=== PATIENT | female | born 1935 | race Caucasian/White ===

== ENCOUNTER 2022-10-28 14:56 | Inpatient (IN) | payer MEDICARE, OTHER ==
[~2022-10-28 14:56] MED LIST: Iopamidol 370 76% 50 ML VIAL FS ONE
[2022-10-28 15:22] LABS: #Basophils 0.1 10x3/uL (0.0-0.2); #Eosinphils 0.3 10x3/uL (0.0-0.5); #Monocytes 0.7 10x3/uL (0.0-1.1); #Neutrophils 3.9 10x3/uL (1.5-8.4); %Basophils 1.3 % (0.0-2.0); %Eosinophils 4.3 % (0.0-6.0); %Lymphocytes 29.7 % (18.0-47.0); %Monocytes 9.8 % (0.0-10.0); %Neutrophils 54.6 % (40.0-75.0); Hemoglobin 13.2 g/dL (12.0-15.5); Mean Corpuscular HGB CONC 32.8 g/dL (32.0-36.0); Mean Corpuscular Hemoglobin 30.6 pg (27.0-33.0); Mean Corpuscular Volume 93.5 fl (81.6-98.3); Mean Platelet Volume 11.1 fl (7.4-10.4); Platelet Count 196 10x3/uL (150-450); RBC Distribution Width 14.9 % (11.5-14.5); Red Blood Cell (RBC) Count 4.31 10x6/uL (3.90-5.03); White Blood Cell (WBC) Count 7.2 10x3/uL (3.5-10.5)
[2022-10-28 15:38] LABS: INR-International Normal Ratio 1.1; PTT 30.3 sec (22.0-33.0)
[2022-10-28 15:42] LABS: ALT (SGPT) 165 U/L (8-55); AST (SGOT) 134 U/L (5-34); Albumin 4.1 g/dL (3.4-4.8); Alkaline Phosphatase 135 U/L (40-110); Anion Gap 18 mmol/L (10-20); BUN (Urea Nitrogen) 31 mg/dL (9.8-20.1); CK (CPK) 217 U/L (29-168); Calc. Creatinine Clearance 0 mL/min (70-130); Calcium 8.8 mg/dL (7.8-10.44); Carbon Dioxide 20 mmol/L (23-31); Chloride 104 mmol/L (98-107); Estimated GFR 39; Globulin 2.6 g/dL (2.4-3.5); Glucose 144 mg/dL (83-110); Magnesium 1.9 mg/dL (1.6-2.6); Protein, Total 6.7 g/dL (5.8-8.1); Sodium 138 mmol/L (136-145)
[2022-10-28 18:34] VITALS: BMI 28.3
[2022-10-28 19:27] LABS: Troponin I Less than 0.010 ng/mL (< 0.028)
[2022-10-28] MEDS ORDERED: Acetaminophen 650 MG Suppository PR PRN (20:44)
[2022-10-28] MEDS ORDERED: Ondansetron PF 4 MG/2 ML Vial IVP PRN (20:44)
[2022-10-28] MEDS ORDERED: Ondansetron ODT 4 MG TAB PO PRN (20:44)
[2022-10-28] MEDS ORDERED: Acetaminophen 325 MG TAB PO PRN (20:44)
[2022-10-28] MEDS: Apixaban 5 MG TAB PO SCH (21:54)
[2022-10-28 22:30] LABS: Troponin I Less than 0.010 ng/mL (< 0.028)
[2022-10-29] MEDS ORDERED: Zolpidem Tartrate 5 MG TAB PO SCH (01:30)
[2022-10-29 05:36] LABS: #Basophils 0.1 10x3/uL (0.0-0.2); #Eosinphils 0.2 10x3/uL (0.0-0.5); #Monocytes 0.9 10x3/uL (0.0-1.1); %Eosinophils 2.4 % (0.0-6.0); %Lymphocytes 26.9 % (18.0-47.0); %Monocytes 10.3 % (0.0-10.0); %Neutrophils 59.2 % (40.0-75.0); Hemoglobin 11.5 g/dL (12.0-15.5); Mean Corpuscular Hemoglobin 29.9 pg (27.0-33.0); Mean Corpuscular Volume 93.5 fl (81.6-98.3); Mean Platelet Volume 11.2 fl (7.4-10.4); Platelet Count 177 10x3/uL (150-450); Red Blood Cell (RBC) Count 3.84 10x6/uL (3.90-5.03); White Blood Cell (WBC) Count 8.4 10x3/uL (3.5-10.5)
[2022-10-29 05:39] LABS: ALT (SGPT) 128 U/L (8-55); AST (SGOT) 81 U/L (5-34); Albumin 3.5 g/dL (3.4-4.8); Alkaline Phosphatase 111 U/L (40-110); Anion Gap 15 mmol/L (10-20); BUN (Urea Nitrogen) 28 mg/dL (9.8-20.1); Bilirubin, Total 0.9 mg/dL (0.2-1.2); Calc. Creatinine Clearance 42 mL/min (70-130); Calcium 8.2 mg/dL (7.8-10.44); Carbon Dioxide 21 mmol/L (23-31); Chloride 105 mmol/L (98-107); Estimated GFR 45; Globulin 2.3 g/dL (2.4-3.5); Glucose 98 mg/dL (83-110); Potassium 3.5 mmol/L (3.5-5.1); Protein, Total 5.8 g/dL (5.8-8.1); Sodium 137 mmol/L (136-145)
[2022-10-29] MEDS: Levothyroxine Sodium 50 MCG TAB PO SCH (06:04)
[2022-10-29] MEDS ORDERED: Sodium Chloride 0.9% 1,000 ML IV SCH (07:30)
[2022-10-29] MEDS ORDERED: Metoprolol Tartrate 5 MG/5 ML VIAL IVP PRN (08:00)
[2022-10-29] MEDS ORDERED: Potassium Chloride 20 MEQ TAB PO SCH (09:00)
[2022-10-29] MEDS ORDERED: Atorvastatin Calcium 40 MG TAB PO SCH (09:00)
[2022-10-29 09:07] LABS: Magnesium 1.7 mg/dL (1.6-2.6)
[2022-10-29] MEDS: Apixaban 5 MG TAB PO SCH ×2 (10:36→21:56)
[2022-10-29] MEDS: DULoxetine 20 MG CAP PO SCH (10:36)
[2022-10-29] MEDS: Amiodarone 200 MG TAB PO SCH ×3 (10:36→21:56)
[2022-10-29] MEDS ORDERED: Digoxin 0.5 MG/2 ML AMP SLOW IVP SCH (15:00)
[2022-10-29] MEDS ORDERED: Sterile Water 10 ML ONE (16:12)
[2022-10-29] MEDS: Zolpidem Tartrate 5 MG TAB PO PRN (23:25)
[2022-10-30 04:47] LABS: #Basophils 0.1 10x3/uL (0.0-0.2); #Eosinphils 0.5 10x3/uL (0.0-0.5); #Monocytes 0.9 10x3/uL (0.0-1.1); #Neutrophils 4.3 10x3/uL (1.5-8.4); %Basophils 1.3 % (0.0-2.0); %Eosinophils 6.5 % (0.0-6.0); %Lymphocytes 22.5 % (18.0-47.0); %Monocytes 11.9 % (0.0-10.0); %Neutrophils 57.5 % (40.0-75.0); Hemoglobin 12.2 g/dL (12.0-15.5); Mean Corpuscular HGB CONC 31.9 g/dL (32.0-36.0); Mean Corpuscular Volume 94.3 fl (81.6-98.3); Mean Platelet Volume 11.5 fl (7.4-10.4); Platelet Count 187 10x3/uL (150-450); RBC Distribution Width 14.8 % (11.5-14.5); Red Blood Cell (RBC) Count 4.06 10x6/uL (3.90-5.03); White Blood Cell (WBC) Count 7.6 10x3/uL (3.5-10.5)
[2022-10-30 05:04] LABS: Anion Gap 13 mmol/L (10-20); BUN (Urea Nitrogen) 21 mg/dL (9.8-20.1); Calc. Creatinine Clearance 52 mL/min (70-130); Calcium 8.5 mg/dL (7.8-10.44); Carbon Dioxide 23 mmol/L (23-31); Chloride 107 mmol/L (98-107); Estimated GFR 59; Glucose 100 mg/dL (83-110); Magnesium 1.9 mg/dL (1.6-2.6); Potassium 3.9 mmol/L (3.5-5.1); Sodium 139 mmol/L (136-145)
[2022-10-30] MEDS: Furosemide 40 MG/4 ML VIAL SLOW IVP SCH ×2 (06:22→14:54)
[2022-10-30] MEDS: Levothyroxine Sodium 50 MCG TAB PO SCH (06:22)
[2022-10-30] MEDS ORDERED: Potassium Chloride 20 MEQ TAB PO SCH (09:00)
[2022-10-30] MEDS ORDERED: Magnesium 2 GM/50 ML(in water) 2 GM in Premix Bag 1 BAG IVPB SCH (09:00)
[2022-10-30] MEDS: Amiodarone 200 MG TAB PO SCH ×2 (09:06→21:11)
[2022-10-30] MEDS: Apixaban 5 MG TAB PO SCH ×2 (09:06→21:11)
[2022-10-30] MEDS: DULoxetine 20 MG CAP PO SCH (09:06)
[2022-10-30] MEDS: Zolpidem Tartrate 5 MG TAB PO PRN (23:03)
[2022-10-31 03:44] LABS: #Basophils 0.1 10x3/uL (0.0-0.2); #Eosinphils 0.4 10x3/uL (0.0-0.5); %Basophils 1.1 % (0.0-2.0); %Eosinophils 5.5 % (0.0-6.0); %Lymphocytes 25.9 % (18.0-47.0); %Monocytes 13.4 % (0.0-10.0); %Neutrophils 53.8 % (40.0-75.0); Hemoglobin 11.7 g/dL (12.0-15.5); Mean Corpuscular HGB CONC 31.7 g/dL (32.0-36.0); Mean Corpuscular Hemoglobin 29.8 pg (27.0-33.0); Mean Corpuscular Volume 94.1 fl (81.6-98.3); Mean Platelet Volume 10.7 fl (7.4-10.4); Platelet Count 177 10x3/uL (150-450); RBC Distribution Width 14.8 % (11.5-14.5); Red Blood Cell (RBC) Count 3.92 10x6/uL (3.90-5.03); White Blood Cell (WBC) Count 7.5 10x3/uL (3.5-10.5)
[2022-10-31 04:05] LABS: ALT (SGPT) 98 U/L (8-55); AST (SGOT) 42 U/L (5-34); Albumin 3.7 g/dL (3.4-4.8); Alkaline Phosphatase 103 U/L (40-110); Anion Gap 13 mmol/L (10-20); BUN (Urea Nitrogen) 22 mg/dL (9.8-20.1); Bilirubin, Total 0.6 mg/dL (0.2-1.2); Calc. Creatinine Clearance 37 mL/min (70-130); Calcium 8.3 mg/dL (7.8-10.44); Carbon Dioxide 25 mmol/L (23-31); Chloride 103 mmol/L (98-107); Estimated GFR 39; Globulin 2.5 g/dL (2.4-3.5); Glucose 111 mg/dL (83-110); Protein, Total 6.2 g/dL (5.8-8.1); Sodium 137 mmol/L (136-145)
[2022-10-31] MEDS: Levothyroxine Sodium 50 MCG TAB PO SCH (06:17)
[2022-10-31] MEDS: Furosemide 40 MG/4 ML VIAL SLOW IVP SCH (06:17)
[2022-10-31] MEDS: DULoxetine 20 MG CAP PO SCH (08:47)
[2022-10-31] MEDS: Apixaban 5 MG TAB PO SCH (08:47)
[2022-10-31] MEDS: Amiodarone 200 MG TAB PO SCH (08:47)
[2022-10-31 13:26] VITALS: BP 138/74; TEMP 98.7
== END 2022-10-31 14:36 | disposition home or self-care (01) | DRG 308 ==
LOC: CSHERS 14:56 → CSHTELE 17:03 → OBSVTOIN 17:04
PROVIDERS: ADMIT Internal Medicine; ATTEND Internal Medicine
DX: I48.0 Paroxysmal atrial fibrillation (principal); I50.33 Acute on chronic diastolic (congestive) heart failure; D69.3 Immune thrombocytopenic purpura; N17.9 Acute kidney failure, unspecified; I11.0 Hypertensive heart disease with heart failure; I49.5 Sick sinus syndrome; R74.01 Elevation of levels of liver transaminase levels; N28.89 Other specified disorders of kidney and ureter; E78.5 Hyperlipidemia, unspecified; E03.9 Hypothyroidism, unspecified; R79.89 Other specified abnormal findings of blood chemistry; Z90.49 Acquired absence of other specified parts of digestive tract; Z90.89 Acquired absence of other organs; Z79.899 Other long term (current) drug therapy; Z79.890 Hormone replacement therapy; Z82.49 Family history of ischemic heart disease and other diseases of the circulatory system; Z79.01 Long term (current) use of anticoagulants
CPT/HCPCS: 36415; 71045; 74177; 76705; 80048; 80053; 82550; 83735; 83880; 84443; 84484; 85025; 85610; 85730; 93005; 93010; 93306; 96361; 96374; 96375; J1160; J1940; J3475; Q9967